=== PATIENT | female | born 1975 | race Two or more races ===

== ENCOUNTER 2021-01-13 06:36 | Day surgery (SDC) | payer OTHER ==
[~2021-01-13 06:36] MED LIST: LEVAQUIN750 MG PO; PYRIDIUM200 MG PO; SYNTHROID125 MCG PO
== END 2021-01-13 15:45 | disposition home or self-care (01) ==
LOC: CIR.AMB 06:36
PROVIDERS: ATTEND Obstetrics & Gynecology Maternal & Fetal Medicine
DX: N84.0 Polyp of corpus uteri (principal); Z20.822 Contact with and (suspected) exposure to COVID-19